=== PATIENT | female | born 1955 | race Caucasian/White ===

== ENCOUNTER 2018-09-13 08:15 | Inpatient (IN) | payer OTHER ==
[~2018-09-13] VITALS: Ht 157.5 cm; Wt 95.3 kg
[2018-09-13] MEDS ORDERED: SYNTHROID200 MCG PO (13:05)
[2018-09-13] MEDS ORDERED: LOSARTAN-HCTZ1 EAC1 PO (13:06)
[2018-09-13] MEDS ORDERED: PAROXETINE CR25 MG PO (13:06)
[2018-09-13] MEDS ORDERED: SINGULAIR10 MG PO (13:07)
[2018-09-13] MEDS ORDERED: SYMBICORT 16010.2 GM IH (13:09)
[2018-09-13] MEDS ORDERED: PROAIR RESPICL90 MCG IH (13:09)
[2018-09-13] MEDS ORDERED: GABAPENTIN800 MG PO (13:10)
[2018-09-13] MEDS ORDERED: [UNRECOGNIZED DRUG - OTHER] (13:10)
[2018-09-13] MEDS ORDERED: OSTERA TABLET1 EACH PO (13:11)
[2018-09-23] MEDS ORDERED: PERCOCET 5-3251 EACH PO (08:49)
[2018-09-23] MEDS ORDERED: ELIQUIS2.5 MG PO (08:49)
[2018-09-23] MEDS ORDERED: DUI500 PO (08:49)
== END 2018-09-23 14:17 | DRG 470 ==
LOC: ADM 08:15 → SURG 09-20 07:00 → SURH 09-20 08:28 → O/R 09-20 08:28 → SURH 09-20 14:41 → CIR.AMB 09-20 08:15 → EDSTATUS 09-20 08:15 → SURG 09-20 08:15
PROVIDERS: Orthopaedic Surgery
PROC: 0SRB0JZ Replacement of Left Hip Joint with Synthetic Substitute, Open Approach (ICD-10-PCS; principal; 2018-09-20 07:00)
DX: M16.12 Unilateral primary osteoarthritis, left hip (principal); D62 Acute posthemorrhagic anemia; M81.0 Age-related osteoporosis without current pathological fracture; I10 Essential (primary) hypertension; J45.998 Other asthma; E66.01 Morbid (severe) obesity due to excess calories; E03.8 Other specified hypothyroidism; M79.7 Fibromyalgia; E07.89 Other specified disorders of thyroid